=== PATIENT | male | born 1945 | race African-American/Black ===

== ENCOUNTER 2017-06-21 03:47 | Emergency (ER) | payer OTHER, MEDICAID ==
[2017-06-21] MEDS ORDERED: Hydrocodone/APAP 10 mg/325 mg Tab PO STA (04:26)
[2017-06-21] MEDS ORDERED: Hydrocodone/APAP 10 mg/325 mg Tab ONE (04:32)
[2017-06-21] MEDS ORDERED: Pantoprazole 40 mg EC Tab PO STA (04:42)
--- NOTE | 2017-06-21 06:20 | Transfer Summary ---
DATE OF TRANSFER: HISTORY: The patient was given hydrocodone. He willingly took it, but he refused Toradol, refused Levaquin, refused Protonix, refused Ultram tablet. The patient does not want any lab, blood workup, or any other thing to be done. He says he wants gets a little better. He will go home. He is being sent home on Ultram 50 mg every 8 hours, Protonix 40 mg once a day for 15 days. He does not want Protonix. He want me to cut it out and I will cut out the Protonix and gave him Tylenol 1 tablet twice a day and then whenever he wants to go home, he can go home. He is a drug seeker looks likes. Perfect time he came, 04:00, attacks occur at 04:00. JOB# [id number]
--- NOTE | 2017-06-21 08:49 | ER Physician Documentation ---
DATE OF SERVICE: 06/21/2017 EMERGENCY ROOM EVALUATION AND TREATMENT This is a 71-year-old male patient who had foot surgery in . Ever since that his foot has been hurting from time to time. He is homeless for the past 4 years ever since he came from [facility] to over here. He is on social security. He is homeless. Occasionally, he might stay in the hotel. HISTORY OF PRESENT ILLNESS: [place] and he was brought over here. Vital signs taken here shows 97.4, pulse of 62, respirations 17, blood pressure 138/81, and oxygen saturation 99. ALLERGIES: No known llergies. in the left foot, more than the right foot. Height is 5 feet 10 inches, weighing 200 pounds. 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 The patient's right pupil is equal. ENT appears to be normal. Neck is supple. Carotids are normal. Peripheral pulses are 1+ palpable. There is some pain in the toes. Some mild swelling in the legs is noted and overall general examination is otherwise negative. Central nervous system: No history of any TIA, stroke, encephalitis, meningitis. Pulmonary: No history of pneumonia, TB, cough, or pulmonary embolism, but the patient had a bout of cough while I was examining him. Heart reveals no chest pain, no myocardial infarction, no rheumatic fever. No valvular heart disease. Endocrine otherwise no history of any diabetes mellitus, hypo or hyperthyroidism. Bones and joints: No apparent complaints. Other than the foot pain, he has no other significant amount of pain. Gastrointestinal varghese: No history of any diarrhea. A 12-point review of systems otherwise has been negative. Cancer varghese: He has enlarged prostate and he had a prostate surgery done with probably laser or so. So these are the 3 things, leg pain, laser and cataract in the left eye. PAST FAMILY HISTORY: Essentially same. PHYSICAL EXAMINATION: The patient appears to be awake, alert, oriented, not in any acute cardiorespiratory distress. Left eye is blind with cataract. Neck is supple. No meningeal signs. No edema over the legs. Pulses are felt. Pain into both the foot is present. No cyanosis, petechia, ecchymosis. Abdomen is soft, benign, negative. Liver, spleen not enlarged. No free fluid in the abdominal cavity. Central nervous system is within normal limits. Chest is clear. No rales, rhonchi, or bronchial wheezing. Heart reveals normal heart sounds. No fourth heart sounds. Second heart sound is physiologically split. No murmur, click, or rub. CLINICAL IMPRESSION: The patient has pain in both foot, rule out gout and this may be a residual pain of the right and left ankle surgery done in the past. Plan is to give him some analgesics in the form of Ultram, hydrocodone, Levaquin. We will check his uric acid to make sure there is no gout. Because he has a surgical apparatus in the legs, being cold weather outside gives rise to pain, that is why he is having this significant pain. We will check his uric acid to see if he has any gout, I doubt it but we will check it out and check some labs to see if there anything else is going on. FINAL DIAGNOSES: Pain in both the foot, cataract and blindness in the left eye, history of prostate surgery, homeless situation for past 4 years. JOB# [id number]
== END 2017-06-21 05:20 | disposition home or self-care (01) ==
LOC: ER 03:47
DX: M79.672 Pain in left foot (principal); M79.671 Pain in right foot; H26.9 Unspecified cataract; H54.7 Unspecified visual loss
CPT/HCPCS: J1885; Z7502; Z7610

== ENCOUNTER 2017-12-24 00:28 | Emergency (ER) | payer OTHER, MEDICAID ==
--- NOTE | 2017-12-24 01:03 | ED Physician Chart ---
ED Chief Complaint/HPI - Patient Information Date Seen:: 12/24/17 Time Seen:: 00:58 Chief Complaint:: leg pain swelling History of Present Illness:: 72 yr old bm homeless on his feet wants info on leg swelling no sob no headache or dizziness Allergies:: Allergies Allergy/AdvReac Type Severity Reaction Status Date / Time No Known Allergies Allergy Verified 06/21/17 04:04 72 yr old male with hx of ca of the prostate on tx with leg swelling lt greater than rt who is homeless and on his feet constantly Vitals:: Vital Signs - 8 hr 12/24/17 00:43 Temp 97.6 F HR 62 RR 18 BP 146/79 O2 Sat % 96 ED Review of Systems - Review of Systems General/Constitutional: No fever, No chills Skin: No skin lesions Head: No headache Eyes: Pain Neck: No neck pain Cardio Vascular: No chest pain Pulmonary: No SOB GI: No nausea, No vomiting G/U: No dysuria Musculoskeletal: No bone or joint pain Endocrine: No polyuria Psychiatric: No anxiety Hematopoietic: No bruising Allergic/Immuno: No urticaria Neurological: No syncope ED Past Medical History - Past Medical History Past Medical History: Other (glaucoma prostate ca on tx) Family Medical History - Family Member Mother History Unknown: Yes ED Physical Exam - Physical Examination General/Constitutional: No distress Head: Atraumatic (eye redness lt) ENMT: External ears, nose nl Neck: Nontender Respiratory: Nl effort/Exclusion Cardio Vascular: No murmur, gallop, rubs GI: No tenderness/rebounding/guarding Extremities: No tenderness or effusion Neuro/Psych: Alert/oriented ED Septic Shock - . Is Septic Shock (SBP<90, OR Lactate>4 mmol\L) present?: No - <6hrs of presentation: Vital Signs: Vital Signs - 8 hr 12/24/17 00:43 Temp 97.6 F HR 62 RR 18 BP 146/79 O2 Sat % 96 ED Reassessment (Disposition) - Diagnosis Diagnosis:: leg edema foot pain - Aftercare/Follow up Instructions Aftercare/Follow-Up Instructions:: Counseled pt regarding lab results/diagnosis & need follow up - Patient Disposition Discharge/Transfer:: Home Condition at Disposition:: Stable
[2017-12-24 01:34] LABS: % BASOPHILS 0.5 % (0.0-2.0); % EOSINOPHILS 5.6 % (0.0-5.0); % LYMPHOCYTES 41.5 % (20.0-50.0); % MONOCYTES 11.3 % (2.0-10.0); % NEUTROPHILS 41.1 % (40.0-80.0); EOSINOPHILE ABSOLUTE 0.3 Th/cmm (0.1-0.4); HEMATOCRIT 39.9 % (41.0-60); HEMOGLOBIN 12.7 gm/dL (12-16); LYMPHOCYTE ABSOLUTE 2.2 Th/cmm (1.5-3.0); MEAN CELL VOLUME 85.8 fl (80-99); MEAN CORPUSCULAR HEMOGLOBIN 27.2 pg (27.0-31.0); MEAN CORPUSCULAR HGB CONC 31.7 pg (28.0-36.0); MEAN PLATELET VOLUME 9.3 fl; MONOCYTE ABSOLUTE 0.6 Th/cmm (0.3-1.0); NEUTROPHILE ABSOLUTE 2.2 Th/cmm (1.8-8.0); PLATELET COUNT 223 Th/cmm (150-400); RED BLOOD COUNT 4.65 Mil/cmm (3.80-5.80); WHITE BLOOD COUNT 5.3 Th/cmm (4.8-10.8)
[2017-12-24 01:36] LABS: URINE SOURCE CLEAN C
[2017-12-24 01:41] LABS: URINE BILIRUBIN NEGATIVE (NEGATIVE); URINE BLOOD NEGATIVE (NEGATIVE); URINE GLUCOSE (UA) NEGATIVE (NEGATIVE); URINE KETONE NEGATIVE (NEGATIVE); URINE LEUKOCYTE ESTERASE TRACE (NEGATIVE); URINE MICROSCOPIC INDICATED? YES; URINE NITRATE NEGATIVE (NEGATIVE); URINE PROTEIN NEGATIVE (NEGATIVE); URINE UROBILINOGEN 0.2 E.U./dL (0.2 - 1.0)
[2017-12-24 01:44] LABS: URINE CLARITY CLEAR (CLEAR); URINE COLOR YELLOW
[2017-12-24 01:45] LABS: URINE RBC 0-2 /hpf (0-5)
[2017-12-24 01:46] LABS: ALBUMIN 3.9 gm/dL (4.2-5.5); ALKALINE PHOSPHATASE 74 U/L (34-104); ANION GAP 10.8 (7.0-16.0); BILIRUBIN,TOTAL 0.4 mg/dL (0.3-1.0); BUN - UREA NITROGEN 16 mg/dL (7-25); CALCIUM SERUM 9.4 mg/dL (8.6-10.3); CARBON DIOXIDE 24.2 mEq/L (21.0-31.0); CHLORIDE 105 mEq/L (98-107); GLUCOSE 112 mg/dL (70-105); SGOT 21 U/L (13-39); SGPT/ALT 20 U/L (7-52); SODIUM SERUM 136 mEq/L (136-145); TOTAL PROTEIN,SERUM 7.7 gm/dL (6.0-8.3)
[2017-12-24 01:46] LABS: URINE BACTERIA FEW /hpf (NONE SEEN); URINE EPITHELIAL CELLS OCCASIONAL /lpf (FEW)
== END 2017-12-24 06:30 | disposition home or self-care (01) ==
LOC: ER 00:28
DX: M79.89 Other specified soft tissue disorders (principal); M79.671 Pain in right foot; M79.672 Pain in left foot; Z85.46 Personal history of malignant neoplasm of prostate; Z59.0 Homelessness
CPT/HCPCS: 36415-UA; 80053-TC; 81001-TC; 85025-TC; Z7502